=== PATIENT | female | born 1965 | race Caucasian/White ===

== ENCOUNTER 2023-06-29 13:09 | Outpatient (AMB) | payer OTHER, SELFPAY ==
[2023-06-29 13:10] VITALS: BP 110/68; PULSE 63; BMI 27.4
--- NOTE | 2023-06-29 13:10 | A.OFFVIS_ITS ---
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 She is concerned about her risk given her father's history of requiring quadruple coronary artery bypass grafting age of 42. She said her flat pattern and grandmother also at a young age in her 50s of unclear reason no workup was done after her passing away. She says her lipids have been within okay limits. She used to be a runner but she is injured her hip and also her back and since then she has not been exercising on a regular basis with running and she says she is gained about 30 lb. She was also diagnosed with celiac disease. She was noted to be anemic and this has now corrected although she continues to have symptoms of fatigue. She said that she still goes and hikes about 7-8 miles and has no issues. She also does weight training and has no issues with that as well. She denies any exertional chest pain. She noticed that at heart rate is in the 50s at nighttime and this concerned her. I do not have a copy of her lipid panel. She denies any palpitations. No syncopal episodes. She does complain of bilateral numbness in both her hands. [facility] History History of hip replacement Hx of spinal fusion Family History Father CHF (congestive heart failure) Social History Patient Tobacco Use Status: Never used Tobacco Review of Systems Const Denies chills, Denies fatigue, Denies fever(s), Denies frequent falls, Denies weakness, Denies weight gain and Denies weight loss ENT Denies dizziness Card Denies chest pain, Denies leg edema, Denies lightheadedness, Denies palpitations, Denies dyspnea, Denies dyspnea on exertion, Denies orthopnea and Denies other (loss of consciousness) Resp Denies cough, Denies dyspnea and Denies dyspnea on exertion GI Denies hematochezia and Denies change in stool character Musc Denies abnormal gait, Denies muscle weakness, Denies numbness, Denies radiating pain into limb and Denies tingling Neuro Denies abnormal gait, Denies dizziness, Denies frequent falls, Denies numbness, Denies tingling and Denies weakness Endo Denies fatigue and Denies palpitations Physical Exam Vital Signs: Last Vital Signs Pulse 63 06/29/23 13:10 BP 110/68 06/29/23 13:10 BMI result Body Mass Index 27.4 Const General: cooperative, comfortable, no acute distress, alert, awake and Physically active Nutritional Appearance: overweight Orientation/consciousness: patient oriented x3 Limitations: no limitations HEENT Head: Yes normocephalic and Yes atraumatic Neck Neck: Yes trachea midline, Yes supple and Yes no JVD Resp Effort & Inspection: normal respiratory effort Auscultation: clear to auscultation bilaterally Cardio Jugular venous distension: no JVD Palpation: normal PMI Rate: regular rate Rhythm: regular rhythm Heart sounds: S1 normal heart sound present, S2 normal heart sound present, no click, no gallops and no murmurs GI Auscultation: normal bowel sounds Skin General skin exam: no rashes or lesions noted Neuro General: patient oriented x3 and no focal motor deficits Extrem General: Yes no clubbing, cyanosis or edema Psych Appearance: grossly normal Office Procedures EKG Details: EKG shows normal sinus rhythm with low-voltage QRS with nonspecific ST T wave changes [id number], Complete Assessment & Plan Assessment & Plan (1) Fatigue: Code(s): R53.83 - Other fatigue Plan: Symptoms of fatigue without any obvious cardiac cause. Heart rate of 50s at nighttime is not concerning and expected in somebody who exercises like her and is in relatively good aerobic shape. Will check a Holter monitor to assess for any significant pauses or bradycardia. Consider sleep apnea and consider home sleep study. Will also obtain echocardiogram to evaluate LV structure and function given her low-voltage QRS and carpal tunnel syndrome. If there is unusual left ventricular wall thickening further workup will be pursued for infiltrative cardiomyopathy. She has at risk for coronary atherosclerosis given her strong family history for premature coronary artery disease. Will pursue coronary calcium score. Will obtain lipid panel from your office. Further treatment based on the finding of test results. Thank you for allowing me to partake in the care Orders: Orders CT Coronary Calcium Score 1 Week R53.83 - Other fatigue CA echo transthoracic complete Today R53.83 - Other fatigue ECG holter monitor 48 hour Today R53.83 - Other fatigue Coding Level of Care Code Tele New Pt Level 3 (60511) Diagnoses Fatigue R53.83 CPT Codes EKG - CPT: 22822-[id number], Complete ([id number])
== END 2023-06-29 13:48 | disposition home or self-care (01) ==
PROVIDERS: PCP Nurse Practitioner Family; Visit Provider Internal Medicine Cardiovascular Disease
DX: R53.83 Other fatigue (principal)
CPT/HCPCS: 93010; 99203

== ENCOUNTER → 2023-06-29 13:09 | Outpatient (BNVA) | payer OTHER, SELFPAY | PROVIDERS: PCP Nurse Practitioner Family; Visit Provider Internal Medicine Cardiovascular Disease | DX: R53.83 Other fatigue (principal) | CPT/HCPCS: 93005 ==

== ENCOUNTER → 2023-07-30 08:55 | Outpatient (REF) | payer OTHER, SELFPAY ==
--- NOTE | 2023-07-30 09:06 | HM_ITS ---
* Total monitoring time 2 days. * Underlying rhythm is sinus with an average rate of 64/Min. * Very rare supraventricular and ventricular ectopy. * No sustained arrhythmias. * No significant pauses or AV blocks. * No patient markers or diary events. MTDD
--- NOTE | 2023-07-30 09:06 | CA_ITS ---
Transthoracic Echocardiogram Patient (Last, First, Middle): Margo Cisneros, Gender: Female Date of : 1965 Age: 58 Procedure Date: 07/30/2023 Procedure Type: Transthoracic Echocardiogram Location: OP Height: 157.48 cm Weight: 65.77 kg BSA: 1.67 m2 Heart Rate: 57 bpm BP: 110 / 64 mmHg Wired Sweatband Cutter: RIGOBERTO Referring MD: Matt Frost MD Premium Representative: Matt Frost MD Symptoms: R53.83 - Other fatigue Study Quality: Adequate ECG Rhythm: Bradycardia Conclusions: - Essentially normal study Findings Left Ventricle Normal left ventricular size, thickness, and systolic function. The visually estimated ejection fraction is between 60-65%. Spectral Doppler is indicative of a normal filling pattern. Peak GLS is -22.1%, within normal limits. Right Ventricle Normal right ventricular cavity size and systolic function. Atria Both atria are normal in size. There is no evidence of interatrial shunt. Aortic Valve Normal aortic valve structure and function. There is no aortic valve stenosis. There is no aortic valve regurgitation. Mitral Valve Normal mitral valve structure and function. There is trace mitral valve regurgitation. There is no mitral valve stenosis. Pulmonic Valve The pulmonic valve is likely normal. There is trace pulmonic valve regurgitation. Tricuspid Valve Normal tricuspid valve structure. There is trace tricuspid valve regurgitation. The right ventricular systolic pressure is normal. The right ventricular systolic pressure is 22 mmHg. Normal right atrial pressure. There is no evidence of pulmonary hypertension. Great Vessels All visible segments of the aorta are normal in size. The pulmonary artery was not well visualized. Venous The inferior vena cava is normal in size and collapses greater than 50% with inspiration. Pericardium/Pleural There is no evidence of pericardial effusion. Prior Study Comparison No prior study available for comparison. Measurements 2D Linear Measurements IVSd: 0.73 0.6-0.9/0.6-1.0 cm LVIDd: 4.33 3.9-5.3/4.2-5.9 cm LVIDd Index: 2.59 2.4-3.2/2.2-3.1 cm/m2 LVIDs: 3.06 2.0-3.6 cm LVPWd: 0.70 0.7-1.1 cm LA Diam: 3.40 2.7-3.8/3.0-4.0 cm LAIDs Index: 2.04 1.5-2.3 cm/m2 LV Mass: 114.94 67-162/88-224 g LV Mass Index: 68.83 43-95/49-115 g/m2 LVOT Diam: 1.90 3.0+(-)1.3 cm 2D Systolic Function EF 4C: 66.70 >55% EF 2C: 61.70 >55% EF BiP: 64.30 >55% Mitral Valve MV Pk E: 0.69 MV PK A: 0.45 MV Decel Time: 161.00 E/A: 1.50 E'Lateral: 7.94 E'Medial: 8.27 E/E' Med: 8.30 E/E' Lat: 8.60 PHT: 47.00 MVA PHT: 4.68 Decel Major: 4.26 Aortic Valve AoV Pk Addison: 1.43 AoV Pk Grad: 8.00 ROSI: 2.19 LVOT LVOT Pk Addison: 1.07 LVOT Mn Addison: 0.81 LVOT VTI: 0.26 LVOT Pk Grad: 5.00 LVOT Mn Grad: 3.00 LVOT Diam: 1.90 LVOT Area: 2.84 Diastolic Function MV Pk E: 0.69 MV Pk A: 0.45 E/A: 1.50 E'Medial: 8.27 E/E' Med: 8.30 E' Laterial: 7.94 E/E' Lat: 8.60 Right Ventricle TAPSE (mm): 28.20 TVS' Addison: 13.30 Tricuspid Valve TR Pk Addison: 2.18 TR Pk Grad: 19.00 RA Press: 3.00 RVSP: 22.00 Great Vessels Aorta Sinus of Valsalva: 2.70 2.0-3.5 cm Ao Asc: 3.20 2.1-3.4 cm Pulmonary Veins Pulm Vein S/D 2.40 Pulmonary Valve PV Pk Addison: 1.09 Peak PV Grad: 5.00 Updated in Other Vendor System with Status of Final Matt Frost MD electronically signed on 07/31/2023 3:20:29 PM with status of Final
== END ==
LOC: HO.CARD 08:55
PROVIDERS: Visit Provider Internal Medicine Cardiovascular Disease
DX: R53.83 Other fatigue (principal)
CPT/HCPCS: 93225; 93306; 93356

== ENCOUNTER → 2023-07-30 09:06 | Outpatient (BNV) | payer OTHER, SELFPAY | PROVIDERS: Visit Provider Internal Medicine Cardiovascular Disease | DX: R00.1 Bradycardia, unspecified (principal) | CPT/HCPCS: 93227; 93306; 93356 ==

== ENCOUNTER 2023-08-04 13:48 | Outpatient (AMB) | payer OTHER, SELFPAY ==
--- NOTE | 2023-08-04 13:49 | A.OFFVIS_ITS ---
Vital Signs 08/04/23 13:57 Height 5 ft 2 in Weight 148 lb BMI 27.1 BP 130/80 Blood Pressure Location Rt brachial Position Sitting Pulse 61 Intake Visit Reasons: lung mass Intake Note: Patient referred by Dr. Frost for Lt upper lung mass noted on recent Chest CT dated 07-31-23. Patient c/o: fatigue. Denies SOB. Banking Services Clerk Required: No Accompanied by: Self / Same As Patient Allergies No Known Allergies Allergy (Verified 08/04/23 13:54) HPI Comments Details: Patient's presents for evaluation of an incidentally found left upper lobe lung mass. She was having a cardiac evaluation and cardiac workup when the lesion was found. The scan she had done was not for lung evaluation. Patient denies any chronic cough, shortness of breath, wheezing, or hemoptysis. Her weight and appetite are stable. She has marked diminished energy over the last few weeks time. 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 Chart was reviewed and patient evaluated [facility] Medical History (Updated 08/04/23 @ 13:55 by TWIN Kate) Spinal fusion, congenital Surgical History (Updated 08/04/23 @ 14:17 by Elvis Salazar MD) History of left hip replacement S/P hip arthroscopy History of hip replacement Hx of spinal fusion Family History Father CHF (congestive heart failure) Social History Patient Tobacco Use Status: Never used Tobacco Physical Exam Vital Signs: Last Vital Signs Pulse 61 08/04/23 13:57 BP 130/80 08/04/23 13:57 BMI result Body Mass Index 27.1 Neck Other: No cervical periclavicular axillary or groin adenopathy appreciated bilaterally. Chest Other: Chest breath sounds bilaterally GI Other: Abdomen is soft, benign Extrem Other: Extremities grossly intact Assessment & Plan Assessment & Plan (1) Mass of left lung: Code(s): R91.8 - Other nonspecific abnormal finding of lung field Category: Surgical Plan Current plan is to arrange for a PET-CT scan as well as baseline pulmonary function tests indirect further therapeutic interventions based on these resul ts. All questions answered. Patient will see me after the above-mentioned studies. Coding Level of Care Code New Pt Level 5 (15051) Diagnoses Mass of left lung R91.8
[2023-08-04 13:57] VITALS: BP 130/80; PULSE 61; BMI 27.1
== END 2023-08-04 14:11 | disposition home or self-care (01) ==
PROVIDERS: PCP Nurse Practitioner Family; Referring Provider Internal Medicine Cardiovascular Disease; Visit Provider Surgery
DX: R91.8 Other nonspecific abnormal finding of lung field (principal)
CPT/HCPCS: 99204

== ENCOUNTER → 2023-08-04 13:48 | Outpatient (BNVA) | payer OTHER, SELFPAY | PROVIDERS: PCP Nurse Practitioner Family; Referring Provider Internal Medicine Cardiovascular Disease; Visit Provider Surgery ==

== ENCOUNTER 2023-08-10 08:55 | Outpatient (AMB) | payer OTHER, SELFPAY ==
--- NOTE | 2023-08-10 08:59 | A.OFFVIS_ITS ---
Vital Signs 08/10/23 09:03 Height 5 ft 2 in Weight 148 lb BMI 27.1 BP 128/86 Blood Pressure Location Rt brachial Position Sitting Pulse 88 Intake Visit Reasons: visit to go over PET scan CD Intake Note: Patient here to discuss PET scan CD results. Patient understands final report still pending. Cytogeneticist Required: No Accompanied by: Self / Same As Patient Allergies No Known Allergies Allergy (Verified 08/10/23 08:59) HPI Comments Details: Patient presents with her brother. Unofficial reading of PET-CT scan was reviewed with the patient and also shown to her. Pulmonary function tests are scheduled for the end of the week. COUNTS INCLUDE 234 BEDS AT THE [facility] Medical History Spinal fusion, congenital Surgical History History of left hip replacement S/P hip arthroscopy History of hip replacement Hx of spinal fusion Family History Father CHF (congestive heart failure) Social History Patient Tobacco Use Status: Never used Tobacco Physical Exam Vital Signs: Last Vital Signs Pulse 88 08/10/23 09:03 BP 128/86 08/10/23 09:03 BMI result Body Mass Index 27.1 Cardio Other: Physical exam is status quo from last week's visit. Assessment & Plan Assessment & Plan (1) Mass of left lung: Code(s): R91.8 - Other nonspecific abnormal finding of lung field Category: Surgical Plan Discussed the patient surgical options as well as preoperative options of obtai marie tissue diagnosis before hand or doing an on-table wedge resection and irregular think further therapy based on these results. Risks and benefits, and alternatives of vats possible open left lower lobectomy reviewed the patient included but not limited to bleeding, infection, recurrence, numbness, pain, scarring, and the patient would like to obtain a 2nd opinion before she proceeds with any intervention. All questions answered. Should she wish to proceed with surgery at [facility], she has been instructed to contact the office and arrangements will be made for this. Coding Level of Care Code New Pt Level 5 (92011) Diagnoses Mass of left lung R91.8
[2023-08-10 09:03] VITALS: BP 128/86; PULSE 88; BMI 27.1
== END 2023-08-10 10:20 | disposition home or self-care (01) ==
PROVIDERS: PCP Nurse Practitioner Family; Visit Provider Surgery
DX: R91.8 Other nonspecific abnormal finding of lung field (principal)
CPT/HCPCS: 99215

== ENCOUNTER → 2023-08-10 08:55 | Outpatient (BNVA) | payer OTHER, SELFPAY | PROVIDERS: PCP Nurse Practitioner Family; Visit Provider Surgery ==

== ENCOUNTER 2023-08-18 08:59 | Outpatient (AMB) | payer OTHER, SELFPAY ==
--- NOTE | 2023-08-18 09:00 | A.OFFVIS_ITS ---
Vital Signs 08/18/23 09:01 Height 5 ft 2 in Weight 148 lb BMI 27.1 BP 163/77 H Blood Pressure Location Rt brachial Position Sitting Pulse 61 Intake Visit Reasons: PET/CT and PFT results Intake Note: Patient here seeking professional opinion for Lt upper lung mass txt. Patient reports care is being taken care [facility] at [facility]. Reports 2nd chest scan in [place]. Another mass on Lt side of concern identified. 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 She presents here to discuss therapeutic options again. [facility] Medical History Spinal fusion, congenital Surgical History History of left hip replacement S/P hip arthroscopy History of hip replacement Hx of spinal fusion Family History Father CHF (congestive heart failure) Social History Patient Tobacco Use Status: Never used Tobacco Physical Exam Vital Signs: Last Vital Signs Pulse 61 08/18/23 09:01 BP 163/77 H 08/18/23 09:01 BMI result Body Mass Index 27.1 Chest Other: Examined status quo from last visit. Deeply situated approximate 2 cm left axillary lymph node Bilateral breast exam demonstrates no other obvious masses, skin changes, or discharge. No other cervical periclavicular a right axillary or groin adenopathy appreciated bilaterally GI Other: Abdomen, soft, corpulent, benign Assessment & Plan Assessment & Plan (1) Mass of left lung: Code(s): R91.8 - Other nonspecific abnormal finding of lung field Category: Surgical (2) Adenopathy: Code(s): R59.9 - Enlarged lymph nodes, unspecified Category: Medical Plan I once again reviewed with the patient that she can have a pre operative lung biopsy or an intra op wedge resection for frozen section and then pending on the results the procedure of simple wedge resection or thorascopic possible open lobectomy. Patient had incidental finding of the PET scan of left axillary lymph node. This was confirmed on exam today. I reassured the patient that although this needs to be addressed it is highly unlikely to be related to her lung lesion. At The present time, patient is scheduled to follow-up with [facility] thoracic surgery along with her PFTs there and will follow-up with me p.r.n.. All questions answered. Should she wished to return in our system, she will contact us. Coding Level of Care Code Est Pt Level 4 (90182) Diagnoses Mass of left lung R91.8 Adenopathy R59.9
[2023-08-18 09:01] VITALS: BP 163/77; PULSE 61; BMI 27.1
== END 2023-08-18 09:47 | disposition home or self-care (01) ==
PROVIDERS: PCP Nurse Practitioner Family; Visit Provider Surgery
DX: R91.8 Other nonspecific abnormal finding of lung field (principal); R59.9 Enlarged lymph nodes, unspecified
CPT/HCPCS: 99214

== ENCOUNTER → 2023-08-18 08:59 | Outpatient (BNVA) | payer OTHER, SELFPAY | PROVIDERS: PCP Nurse Practitioner Family; Visit Provider Surgery ==